=== PATIENT | male | born 1950 | race Caucasian/White ===

== ENCOUNTER → 2016-11-12 | Outpatient (CLI) | payer OTHER | LOC: BHFA 14:00 | PROVIDERS: ATTEND Internal Medicine Cardiovascular Disease | DX: I34.9 Nonrheumatic mitral valve disorder, unspecified (principal) ==

== ENCOUNTER → 2016-12-02 | Outpatient (CLI) | payer OTHER | LOC: BHFA 09:00 | PROVIDERS: ATTEND Internal Medicine Cardiovascular Disease | DX: I48.0 Paroxysmal atrial fibrillation (principal); E78.00 Pure hypercholesterolemia, unspecified; Z95.0 Presence of cardiac pacemaker; I38 Endocarditis, valve unspecified ==